=== PATIENT | male | born 1970 | race Caucasian/White ===

== ENCOUNTER 2018-06-24 15:17 | Inpatient (IN) | payer OTHER ==
[~2018-06-24] VITALS: Ht 185.4 cm; Wt 93.0 kg
[2018-06-24 16:00] VITALS: BP 169/94
[2018-06-24 17:11] LABS: BASO % 0.3 % (0.0-1.0); EOS % 0.1 % (1.0-4.0); HEMATOCRIT 46.3 % (42.0-52.0); HEMOGLOBIN 16.2 g/dl (14.0-18.0); LYMPH # 1.2 10*3/uL (1.3-4.4); LYMPH % 11.2 % (27.0-41.0); MEAN CELL VOLUME 93.9 fl (80.0-94.0); MEAN CORPUSCULAR HGB 32.9 pg (27.0-31.0); MEAN PLATELET VOLUME 9.7 fl (9.6-12.3); MONO # 0.9 10*3/uL (0.1-1.0); MONO % 8.6 % (3.0-9.0); NEUT # 8.2 10*3/uL (2.3-7.9); NEUT % 79.5 % (47.0-73.0); PLATELET COUNT AUTOMATED 169 10*3/uL (130-400); RED BLOOD COUNT 4.93 10*6/uL (4.50-5.90); RED CELL DISTRI WIDTH 12.1 % (0-14.5); WHITE BLOOD COUNT 10.3 10*3/uL (4.8-10.8)
[2018-06-24 17:26] LABS: ALBUMIN 3.9 gm/dl (3.1-4.5); ALKALINE PHOSPHATASE 78 U/L (45-117); BUN 18 mg/dl (7-24); CHLORIDE 98 mmol/L (98-107); CREATININE 0.97 mg/dL (0.70-1.30); ETHYL ALCOHOL < 3.0 mg/dl (<3); POTASSIUM 3.6 mmol/L (3.5-5.1); SGOT/AST 36 IU/L (3-35); SGPT/ALT 36 U/L (12-78); SODIUM 136 mmol/L (136-145); TOTAL PROTEIN 8.7 gm/dL (6.4-8.2)
[2018-06-24 17:53] LABS: BILIRUBIN NEGATIVE (NEGATIVE); BLOOD 1+ (NEGATIVE); CLARITY CLEAR (CLEAR); COLOR YELLOW (YELLOW); GLUCOSE NEGATIVE (NEGATIVE); KETONE NEGATIVE (NEGATIVE); LEUKO ESTERASE NEGATIVE (NEGATIVE); NITRITE NEGATIVE (NEGATIVE); SPECIFIC GRAVITY 1.025 (1.005-1.030); UROBILINOGEN 0.2 E.U./dl (0.2-1.0)
[2018-06-24 18:01] LABS: BACTERIA 1+; EPITHELIAL CELLS 0-2; RBC 0-2 rbc/hpf (0-2); URINE AMPHETAMINES < 1000 (1000ng/ml); URINE BARBITURATES < 200 (200ng/ml); URINE BENZODIAZEPINES < 200 (200ng/ml); URINE CANNABINOIDS (THC) < 50 (50ng/ml); URINE COCAINE < 300 (300ng/ml); URINE METHADONE < 300 (300ng/ml); URINE OPIATES < 300 (300ng/ml); WBC 0-2 wbc/hpf (0-5)
[2018-06-24 18:02] LABS: URINE PHENCYCLIDINE < 25 (25ng/ml)
[2018-06-24 20:00] VITALS: BP 143/91
[2018-06-25] VITALS: BP 142/100
[2018-06-25 08:00] VITALS: BP 146/98
[2018-06-25 12:00] VITALS: BP 131/99
[2018-06-25 16:00] VITALS: BP 142/86
[2018-06-25 20:00] VITALS: BP 144/99
[2018-06-26] VITALS: BP 140/98
[2018-06-26 08:00] VITALS: BP 138/98
[2018-06-26 12:00] VITALS: BP 140/96
[2018-06-26 16:00] VITALS: BP 143/93
[2018-06-26 20:00] VITALS: BP 144/90
[2018-06-27] VITALS: BP 142/98
[2018-06-27 06:24] LABS: BASO # 0.1 10*3/uL (0.0-0.1); BASO % 0.5 % (0.0-1.0); EOS # 0.3 10*3/uL (0.0-0.4); EOS % 2.6 % (1.0-4.0); HEMATOCRIT 49.3 % (42.0-52.0); HEMOGLOBIN 16.7 g/dl (14.0-18.0); LYMPH # 1.6 10*3/uL (1.3-4.4); LYMPH % 15.2 % (27.0-41.0); MEAN CELL VOLUME 95.5 fl (80.0-94.0); MEAN CORPUSCULAR HGB 32.4 pg (27.0-31.0); MEAN CORPUSCULAR HGB CONC 33.9 g/dl (33.0-37.0); MEAN PLATELET VOLUME 9.7 fl (9.6-12.3); MONO # 0.8 10*3/uL (0.1-1.0); MONO % 7.3 % (3.0-9.0); NEUT # 7.9 10*3/uL (2.3-7.9); NEUT % 74.2 % (47.0-73.0); PLATELET COUNT AUTOMATED 172 10*3/uL (130-400); RED BLOOD COUNT 5.16 10*6/uL (4.50-5.90); RED CELL DISTRI WIDTH 11.7 % (0-14.5); WHITE BLOOD COUNT 10.7 10*3/uL (4.8-10.8)
[2018-06-27 06:46] LABS: CREATININE 1.02 mg/dL (0.70-1.30)
[2018-06-27 08:00] VITALS: BP 152/100
[2018-06-27 12:00] VITALS: BP 126/88
[2018-06-27 16:00] VITALS: BP 144/93
[2018-06-27 20:00] VITALS: BP 149/102
[2018-06-28] VITALS: BP 145/102
[2018-06-28 08:00] VITALS: BP 156/108
[2018-06-28] MEDS ORDERED: ATARAX,VISTARIL50 MG PO (09:06)
[2018-06-28] MEDS ORDERED: ZOFRAN 4 MG ED2 TAB PO (09:06)
== END 2018-06-28 10:16 | disposition home or self-care (01) | DRG 897 ==
LOC: 5E 15:17
PROVIDERS: Internal Medicine
DX: F10.232 Alcohol dependence with withdrawal with perceptual disturbance (principal); R00.0 Tachycardia, unspecified; J02.9 Acute pharyngitis, unspecified; Z72.0 Tobacco use; Z84.89 Family history of other specified conditions

== ENCOUNTER 2021-10-25 10:15 | Inpatient (IN) | payer OTHER ==
[~2021-10-25] VITALS: Ht 185 cm; Wt 83.5 kg
[~2021-10-25 10:15] MED LIST: ATARAX,VISTARIL50 MG PO; ZOFRAN 4 MG ED2 TAB PO
[2021-10-25 10:49] VITALS: BP 164/118
[2021-10-25 11:42] LABS: BASO % 0.5 % (0.0-1.0); EOS % 0.1 % (1.0-4.0); HEMATOCRIT 48.1 % (42.0-52.0); LYMPH # 0.7 10*3/uL (1.3-4.4); LYMPH % 9.4 % (27.0-41.0); MEAN CELL VOLUME 96.2 fl (80.0-94.0); MEAN CORPUSCULAR HGB 34.4 pg (27.0-31.0); MEAN CORPUSCULAR HGB CONC 35.8 g/dl (33.0-37.0); MEAN PLATELET VOLUME 9.6 fl (9.6-12.3); MONO # 0.7 10*3/uL (0.1-1.0); MONO % 8.7 % (3.0-9.0); NEUT # 6.2 10*3/uL (2.3-7.9); NEUT % 80.9 % (47.0-73.0); PLATELET COUNT AUTOMATED 117 10*3/uL (130-400); RED CELL DISTRI WIDTH 11.9 % (0-14.5); WHITE BLOOD COUNT 7.6 10*3/uL (4.8-10.8)
[2021-10-25 12:01] LABS: ALKALINE PHOSPHATASE 85 U/L (45-117); BUN 14 mg/dl (7-24); CHLORIDE 96 mmol/L (98-107); CREATININE 0.95 mg/dL (0.70-1.30); POTASSIUM 3.7 mmol/L (3.5-5.1); SGOT/AST 182 IU/L (3-35); SGPT/ALT 149 U/L (12-78); SODIUM 136 mmol/L (136-145); TOTAL PROTEIN 8.3 gm/dL (6.4-8.2)
[2021-10-25 12:02] LABS: ACETAMINOPHEN (TYLENOL) < 5.0 ug/ml (10-30); ETHYL ALCOHOL < 3.0 mg/dl (<3)
[2021-10-25 13:22] LABS: BILIRUBIN Negative (Negative); BLOOD Negative (Negative); CLARITY Clear (Clear); COLOR Yellow (Yellow); GLUCOSE Negative (Negative); KETONE Trace (Negative); LEUKO ESTERASE Trace (Negative); NITRITE Negative (Negative)
[2021-10-25 13:31] LABS: PH >= 9.0 (4.5-8.0)
[2021-10-25 13:36] LABS: EPITHELIAL CELLS 0-2; RBC 0-2 rbc/hpf (0-2)
[2021-10-25 13:37] LABS: WBC 0-2 wbc/hpf (0-5)
[2021-10-25 13:40] LABS: URINE AMPHETAMINES < 1000 (1000ng/ml); URINE BARBITURATES < 200 (200ng/ml); URINE BENZODIAZEPINES < 200 (200ng/ml); URINE CANNABINOIDS (THC) < 50 (50ng/ml); URINE COCAINE < 300 (300ng/ml); URINE METHADONE < 300 (300ng/ml); URINE OPIATES < 300 (300ng/ml)
[2021-10-25 13:45] LABS: URINE PHENCYCLIDINE < 25 (25ng/ml)
[2021-10-25 13:55] VITALS: BP 160/98
[2021-10-25 16:00] VITALS: BP 160/98
[2021-10-25 20:00] VITALS: BP 150/100
[2021-10-26] VITALS: BP 151/106
[2021-10-26 08:00] VITALS: BP 137/107
[2021-10-26 16:00] VITALS: BP 151/109
[2021-10-26 20:00] VITALS: BP 149/104
[2021-10-27] VITALS: BP 137/97
[2021-10-27 08:00] VITALS: BP 148/110
[2021-10-27] MEDS ORDERED: VITAMIN B-1100 M1 PO (10:36)
[2021-10-27] MEDS ORDERED: NATURE'S BLEND F1 MG PO (10:36)
== END 2021-10-27 11:57 | disposition home or self-care (01) | DRG 897 ==
LOC: ED 10:15 → 5E 12:41 → EDHOLD 12:41 → 5E 13:13
PROVIDERS: Emergency Medicine; ADMIT Internal Medicine; ATTEND Internal Medicine
DX: F10.230 Alcohol dependence with withdrawal, uncomplicated (principal); E87.8 Other disorders of electrolyte and fluid balance, not elsewhere classified; R73.9 Hyperglycemia, unspecified; R74.01 Elevation of levels of liver transaminase levels; E80.6 Other disorders of bilirubin metabolism; F17.210 Nicotine dependence, cigarettes, uncomplicated; Z71.6 Tobacco abuse counseling